=== PATIENT | female | born 1985 | race Caucasian/White ===

== ENCOUNTER → 2018-11-28 16:51 | Outpatient (CLI) | payer OTHER, SELFPAY ==
[2018-11-28 17:13] LABS: Basophils % 0.6 % (0.1-2.0); Eosinophils # 0.3 K/mm3 (0.0-0.4); Eosinophils % 3.6 % (0.1-12.0); Hematocrit 39.8 % (37.0-47.0); Hemoglobin 12.5 g/dL (12.2-16.2); Lymphocytes # 2.6 K/mm3 (0.7-4.5); Lymphocytes % 34.6 % (10-50); Mean Corpuscular HGB Conc 31.4 g/dL (31.8-35.4); Mean Corpuscular Hemoglobin 28.5 pg (27.0-31.2); Mean Corpuscular Volume 90.7 fl (81-99); Monocytes # 0.6 K/mm3 (0.1-1.0); Monocytes % 8.1 % (1.7-9.3); Neutrophils % 53.1 % (37.0-80.0); Platelet Count 294 K/mm3 (142-424); Red Blood Count 4.39 M/mm3 (4.20-5.40); White Blood Count 7.4 K/mm3 (4.8-10.8)
[2018-11-28 18:33] LABS: Alanine Aminotransferase 18 U/L (12-78); Albumin Level 3.5 gm/dL (3.4-5.0); Alkaline Phosphatase 62 U/L (46-116); Anion Gap 12.8 mEq/L (5-15); Aspartate Amino Transferase 10 U/L (15-37); Bilirubin,Total 0.3 mg/dL (0.2-1.0); Blood Urea Nitrogen 8 mg/dL (7-18); Calcium 8.1 mg/dL (8.5-10.1); Carbon Dioxide 26 mmol/L (21.0-32.0); Chloride 106 mmol/L (98-107); Cholesterol 147 mg/dL (140-200); Creatinine,Serum 0.65 mg/dL (0.55-1.02); Estimated Glomerular Filt Rate 106 ml/min (>60); GFR (African American) 128 ML/MIN (>60); Globulin 3.6 gm/dl (1.3-3.2); Glucose 90 mg/dL (74-106); HDL Cholesterol 37 mg/dL (29-89); LDL Cholesterol 90 mg/dL (0-130); Potassium 3.8 mmoL/L (3.5-5.1); Sodium 141 mmol/L (136-145); T4 (Thyroxine) 6.6 ug/dl (4.7-13.3); Thyroid Stimulating Hormone 1.29 uIU/ml (0.358-3.740); Total Protein,Serum 7.1 gm/dL (6.4-8.2); Triglycerides 101 mg/dL (30-200); VLDL Cholesterol 20 mg/dL (0-40)
[2018-11-30 18:57] LABS: Vitamin D 25 Hydroxy 27.7 ng/mL (30.0-100.0)
== END ==
PROVIDERS: Visit Provider Nurse Practitioner Family
DX: R68.89 Other general symptoms and signs (principal); E55.9 Vitamin D deficiency, unspecified
CPT/HCPCS: 80053; 80061; 82652; 84436; 84443; 85025

== ENCOUNTER → 2019-01-01 13:59 | Outpatient (CLI) | payer OTHER, SELFPAY ==
[2019-01-01 16:42] LABS: Amphetamine/Metha Screen,Urine Negative ng/mL (<1000); Barbiturates Screen,Urine Negative ng/mL (<200); Benzodiazepines Screen,Urine Negative ng/mL (<200); Cannabinoid Screen,Urine Positive ng/mL (<50); Cocaine Screen,Urine Negative ng/mL (<300); Methadone Screen,Urine Negative ng/mL (<300); Opiate Screen,Urine Negative ng/mL (<300); Phencyclidine Screen,Urine Negative ng/mL (<25)
[2019-01-08 14:11] LABS: Alprazolam Negative (Cutoff=100); Benzodiazepines Negative ng/mL (Cutoff=100); Clonazepam Negative (Cutoff=100); Flurazepam Negative (Cutoff=100); Lorazepam Negative (Cutoff=100); Midazolam Negative (Cutoff=100); Temazepam Negative (Cutoff=100); Triazolam Negative (Cutoff=100)
== END ==
PROVIDERS: Visit Provider Emergency Medicine
DX: Z79.899 Other long term (current) drug therapy (principal)
CPT/HCPCS: 80305; 80346

== ENCOUNTER → 2019-02-14 12:16 | Outpatient (CLI) | payer OTHER, SELFPAY ==
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
== END ==
PROVIDERS: PCP Emergency Medicine; Visit Provider Nurse Practitioner Family
DX: R07.81 Pleurodynia (principal)
CPT/HCPCS: 71101

== ENCOUNTER 2019-09-30 09:20 | Emergency (ER) | payer OTHER, SELFPAY ==
[2019-09-30 09:21] VITALS: BP 127/71; PULSE 98; RESP 17; TEMP 36.9; O2SAT 99; BMI 35.9
[2019-09-30 09:30] VITALS: BMI 35.9
[2019-09-30 09:36] LABS: Microscopic, Urine URINE MICROSCOPIC (MICROSCOPIC)
[2019-09-30 09:38] LABS: Appearance,Urine SL CLOUDY (Clear); Bilirubin,Urine Negative (Negative); Blood, Urine TRACE-I (Negative); Color,Urine YELLOW (Yellow); Glucose,Urine (UA) Negative (Negative); Ketones,Urine Negative (Negative); Leukocyte Esterase,Urine 1+ (Negative); Nitrate,Urine Negative (Negative); Protein,Urine Negative (Negative); Urobilinogen,Urine 0.2 EU/dl (0.2)
[2019-09-30 09:59] LABS: Amorphous Sediment,Urine 2+ /lpf; Bacteria,Urine 3+ /lpf
--- NOTE | 2019-09-30 10:20 | HMH.EDGENADL ---
ED Disposition Clinical Impression: UTI (urinary tract infection) due to Enterococcus Disposition: Home, Self-Care Condition on Discharge: Good Instructions: DI for Low Back Pain, Urinary Tract Infection Prescriptions: Ciprofloxacin HCl [Cipro 500mg Tab] 500 mg PO BID 10 Days #20 tab Transmission Status: Pending to [facility] Referrals: Chao Holliday MD [Primary Care Provider] - - Critical Care Critical Care Time: No Attestation: On 09/30/19, the high probability of a clinically significant, sudden or life threatening deterioration of the following system(s) required my full and direct attention, intervention and personal management. The time I documented below is in addition to time spent performing reported procedures but includes the following listed in this critical care notation. Medical Decision Making - Medical Records Medical records reviewed: Yes: I reviewed the patient's medical records. - Marques Inquiry Pt receiving controlled substance: No Vital Signs: 09/30/19 09:21 Temperature 98.4 F Temperature Source Oral Pulse Rate [Right] 98 H Respiratory Rate 17 Blood Pressure [Right Arm] 127/71 Blood Pressure Mean [Right Arm] 89 02 Sat by Pulse Oximetry 99 - Lab Data Lab results reviewed: Yes: I reviewed the patient's lab results. Lab Results 09/30/19 09:25: Urine Color Yellow, Urine Appearance Sl cloudy, Urine pH 6.0, Ur Specific [place] 1.020, Urine Protein Negative, Urine Glucose (UA) Negative, Urine Ketones Negative, Urine Blood Trace-i, Urine Nitrate Negative, Urine Bilirubin Negative, Urine Urobilinogen 0.2, Ur Leukocyte Esterase 1+ A, Urine RBC 5-10, Urine WBC 10-20, Ur Squamous Epith Cells 10-20, Amorphous Sediment 2+, Urine Bacteria 3+ Orders (Tests/Meds): ORDERS Category Date Time Status Urine Culture Stat Micro 09/30/19 09:25 Received General Adult HPI - General Chief complaint: Back Pain/Injury Stated complaint: lower back pain Time Seen by Provider: 09/30/19 10:20 Mode of Arrival: Ambulatory Source of Information: Patient Limitations: No Limitations Description of Symptoms (Recalled from ER Triage Doc. by RN): C/O lower back pain that radiates down her legs that began this morning, denies any problems with urination. Denies cough, fever, soa, body aches, or contact with anyone with COVID19. - History of Present Illness HPI narrative: 34-year-old female presents the ED with flank pain. She also is complaining of some dysuria. She states this pain started 2 days ago. She states that the pain is about 3-4 out of 10 classifies it as a pressure-like sensation in the suprapubic area and also with dysuria. She describes alleviating factors include heating pad and laying flat and exacerbating factors include urinating. Patient denies any fever shakes or chills. Patient denies any shortness of breath or cough. - Related Data Previous Rx's Medication Instructions Recorded gabapentin 300 mg capsule 300 mg PO BID #60 cap 08/18/19 cholecalciferol (vitamin D3) 1,250 1,250 mcg PO QWEEK #12 cap 08/26/19 mcg (50,000 unit) capsule cholecalciferol (vitamin D3) 25 25 mcg PO DAILY #90 cap 08/26/19 mcg (1,000 unit) capsule phentermine 37.5 mg capsule 37.5 mg PO DAILY #30 cap 08/26/19 Ciprofloxacin HCl [Cipro 500mg 500 mg PO BID 10 Days #20 tab 09/30/19 Tab] Allergies Allergy/AdvReac Type Severity Reaction Status Date / Time No Known Allergies Allergy Verified 08/26/19 16:01 [facility] History - Hepatitis A Screen Drug use history?: No High risk sexual behaviors?: No History of sexually transmitted infection?: No Currently employed?: No Childcare worker?: No Do you have indoor plumbing?: Yes Do you have electricity?: Yes Attestation statement:: This patient has been screened for Hepatitis A risk factors. I have reviewed the patient's past medical history: Yes Medical History: Reports:: Anxiety Other Surgeries: Yes: Cholecystecto
[2019-09-30 10:32] VITALS: BP 122/89; PULSE 92; RESP 18; TEMP 36.7; O2SAT 100
== END 2019-09-30 10:32 | disposition home or self-care (01) ==
PROVIDERS: Emergency Provider Family Medicine; PCP Emergency Medicine
DX: N30.00 Acute cystitis without hematuria (principal); F41.9 Anxiety disorder, unspecified; F17.210 Nicotine dependence, cigarettes, uncomplicated
CPT/HCPCS: 81001; 87086; 99282

== ENCOUNTER 2019-12-02 04:57 | Emergency (ER) | payer OTHER, SELFPAY ==
[2019-12-02 05:07] VITALS: BP 133/74; PULSE 96; RESP 18; TEMP 36.8; O2SAT 98; BMI 35.3
--- NOTE | 2019-12-02 05:11 | XR_ITS ---
PROCEDURE: XR CHEST 2V CLINICAL HISTORY: cough COMPARISON: CR XR RIBS RT MIN 3V W CXR1V from 02/14/2019 FINDINGS: The cardiomediastinal silhouette and pulmonary vascularity are within normal limits. The lungs are clear without infiltrates, suspicious nodules, or pleural effusions. There are 2 calcified granulomas in the left upper lobe. The remaining lungs are clear. No acute bony anomaly. IMPRESSION: No acute findings. Dictated by: Martín Merino MD 12/02/2019 05:32 Martín Merino MD in [place] 12/02/2019 05:32
--- NOTE | 2019-12-02 05:49 | PC.NURSE ---
lab obtained specimen for jyoti
[2019-12-02 05:54] VITALS: BP 126/81; PULSE 77; RESP 18; O2SAT 96
[2019-12-02 06:00] VITALS: BP 127/75; PULSE 76; RESP 18; O2SAT 96
--- NOTE | 2019-12-02 06:20 | HMH.EDFEV ---
ED Disposition Clinical Impression: Exposure to COVID-19 virus Acute bronchitis Qualifiers: Bronchitis organism: unspecified organism Qualified Code(s): J20.9 - Acute bronchitis, unspecified Disposition: Home, Self-Care Condition on Discharge: Good Instructions: DI for Fever (Symptom) -- Adult Additional Instructions: fluids and self quarantine till results Prescriptions: levoFLOXacin [Levaquin 500mg tab] 500 mg PO DAILY #7 tab Transmission Status: Pending to [facility] Referrals: Chao Holliday MD [Primary Care Provider] - - Critical Care Critical Care Time: No Attestation: On 12/02/19, the high probability of a clinically significant, sudden or life threatening deterioration of the following system(s) required my full and direct attention, intervention and personal management. The time I documented below is in addition to time spent performing reported procedures but includes the following listed in this critical care notation. Medical Decision Making - Medical Records Medical records reviewed: Yes: I reviewed the patient's medical records. - Marques Inquiry Pt receiving controlled substance: No Vital Signs: 12/02/19 05:07 12/02/19 05:54 12/02/19 06:00 Temperature 98.2 F Temperature Source Oral Pulse Rate [Right Brachial] 96 H 77 76 Respiratory Rate 18 18 18 Blood Pressure [Right Arm] 133/74 126/81 127/75 Blood Pressure Mean [Right Arm] 93 96 92 Blood Pressure Source [Right Arm] Automatic Cuff Blood Pressure Position [Right Arm] Sitting 02 Sat by Pulse Oximetry 98 96 96 Oxygen Delivery Method Room Air Room Air Nasal Cannula Oxygen Flow Rate (LPM) 2 - Lab Data Lab results reviewed: Yes: I reviewed the patient's lab results. Orders (Tests/Meds): ORDERS Category Date Time Status Covid-19 Nasal PCR ([facility]) Routine Lab 12/02/19 05:44 Received - Radiology Data #1 Image(s): Chest Image Reviewed: Yes I reviewed the patient's radiology image Preliminary Findings: Normal/NAD Fever HPI - General Chief Complaint: Fever Stated Complaint: headache, body aches, cough Time Seen by Provider: 12/02/19 06:00 Mode of Arrival: Family Vehicle Source of Information: Patient, Medical Record Limitations: No Limitations Description of Symptoms (Recalled from ER Triage Doc. by RN): pt describes cough/congestion/sinus drainage that began 2 days ago; and body aches yesterday along with fever; recent contact with covid pos patient - History of Present Illness HPI Narrative: prod cough with green sputum over the last few days with exposure to [id number] achey and has tob use - no change in smell complaint: fever, malaise Onset (ago): day(s) Context: sick contacts Associated symptoms: denies other symptoms Treatments prior to arrival fever: acetaminophen - Related Data Previous Rx's Medication Instructions Recorded cholecalciferol (vitamin D3) 1,250 1,250 mcg PO QWEEK #12 cap 08/26/19 mcg (50,000 unit) capsule cholecalciferol (vitamin D3) 25 25 mcg PO DAILY #90 cap 08/26/19 mcg (1,000 unit) capsule gabapentin 300 mg capsule 300 mg PO BID #60 cap 11/14/19 phentermine 37.5 mg capsule 37.5 mg PO DAILY #30 cap 11/14/19 levoFLOXacin [Levaquin 500mg 500 mg PO DAILY #7 tab 12/02/19 tab] Allergies Allergy/AdvReac Type Severity Reaction Status Date / Time No Known Allergies Allergy Verified 11/14/19 10:55 [facility] History - Hepatitis A Screen Drug use history?: No High risk sexual behaviors?: No History of sexually transmitted infection?: No Currently employed?: No Childcare worker?: No Do you have indoor plumbing?: Yes Do you have electricity?: Yes Attestation statement:: This patient has been screened for Hepatitis A risk factors. I have reviewed the patient's past medical history: Yes Medical History: Reports:: Anxiety Other Surgeries: Yes: Cholecystectomy, Tubal Ligation Amputation: No Fractures: No - Social History Smoking St
[2019-12-02 06:28] VITALS: BP 128/73; PULSE 83; RESP 18; TEMP 36.8; O2SAT 95
== END 2019-12-02 06:49 | disposition home or self-care (01) ==
PROVIDERS: Emergency Provider Emergency Medicine; PCP Emergency Medicine
DX: Z20.828 Contact with and (suspected) exposure to other viral communicable diseases (principal); J20.9 Acute bronchitis, unspecified
CPT/HCPCS: 71046; 99283; U0003

== ENCOUNTER → 2020-03-08 14:06 | Outpatient (CLI) | payer OTHER, SELFPAY ==
[2020-03-10 11:00] LABS: Covid-19 Nasal PCR Sendout P&C POSITIVE
== END ==
PROVIDERS: PCP Emergency Medicine; Visit Provider Emergency Medicine
DX: U07.1 COVID-19 (principal)
CPT/HCPCS: U0004

== ENCOUNTER 2020-12-23 10:39 | Emergency (ER) | payer OTHER, SELFPAY ==
[2020-12-23 10:40] VITALS: BP 127/80; PULSE 91; RESP 20; TEMP 36.6; O2SAT 99; BMI 36.0
--- NOTE | 2020-12-23 11:01 | HMH.EDUTC ---
[facility] [place] Clinical Impression: Gastroenteritis Disposition: Home, Self-Care Condition on Discharge: Good Instructions: Nausea and Vomiting-Adult, Diarrhea, DI for Viral Gastroenteritis -- Adult, Gastroenteritis Diet Additional Instructions: Drink extra fluids with and between meals. If you have difficulty drinking, try very small amounts of water or suck on ice chips. ? Avoid fruit juices, as these do not replace minerals and can actually increase diarrhea. ? Children and adults can use sports drinks to replenish electrolytes. Younger children and infants should use products formulated for children, like oral rehydration solutions. ? Eat food in small amounts and let your stomach recover. ? Get lots of rest. You may feel tired or weak. ? No greasy or fried foods for the next 24-48 hours BRAT diet Bananas Rice Apples and [place] ? Make sure to drink plenty of liquids ? Return if needed ? Straight to ER if any life threatening symptoms ? Zofran as prescribed ? You was given an outpatient order for diarrhea panel, please collect specimen and bring back to outpatient lab then call back to the [facility] or follow up with family doctor for results ? Follow up with family doctor in the next 48-72 hours if no improvement or any worsening of symptoms Prescriptions: Dicyclomine HCl [Bentyl 10mg capsule] 10 mg PO TID PRN #15 cap PRN Reason: Cramping Transmission Status: Pending to [facility] Ondansetron [Zofran 4mg ODT] 4 mg PO TIDP PRN #10 tab PRN Reason: Nausea Transmission Status: Pending to [facility] Referrals: Chao Holliday MD [Primary Care Provider] - As needed Forms: Work/School Release Time of Disposition: 11:36 Medical Decision Making - Marques Inquiry Pt receiving controlled substance: No Marques was queried for this patient: No Vital Signs: 12/23/20 10:40 Temperature 97.8 F Temperature Source Oral Pulse Rate [Left Brachial] 91 H Respiratory Rate 20 Blood Pressure [Left Arm] 127/80 Blood Pressure Mean [Left Arm] 95 Blood Pressure Source [Left Arm] Automatic Cuff Blood Pressure Position [Left Arm] Sitting 02 Sat by Pulse Oximetry 99 Oxygen Delivery Method Room Air Orders (Tests/Meds): ED MEDICATIONS Discontinued Medications Generic Name Dose Route Start Last Admin Trade Name Freq PRN Reason Stop Dose Admin Dicyclomine HCl 10 mg 12/23/20 11:09 12/23/20 11:16 Dicyclomine 10mg Capsule PO 12/23/20 11:10 10 mg ONCE ONE Administration Ondansetron HCl 4 mg 12/23/20 11:08 12/23/20 11:16 Ondansetron 4mg Odt SL 12/23/20 11:09 4 mg ONCE ONE Administration Medical Decision Narrative: Patient states that after medication cramping is much better and no longer having nausea [facility] [place] - General Stated complaint: vomiting, diarrhea, fever, body aches Time Seen by Provider: 12/23/20 10:45 Mode of Arrival: Ambulatory Source of Information: Patient Limitations: No Limitations Description of Symptoms (Recalled from Triage Doc. by RN): PATIENT C/O ABDOMINAL PAIN, VOMITING AND FEVER THAT STARTED LAST NIGHT. REPORTS THAT ABDOMINAL PAIN IS BETTER AFTER VOMITING HEENT Symptoms (Recalled from RN notes): No Resp Symptoms (Recalled from RN notes): No Skin Symptoms (Recalled from RN notes): No MS Symptoms (Recalled from RN notes): No Functional Status (Recalled from RN notes): WNL - History of Present Illness Provider Complaint: Patient states that she thinks she may have got food poisoning yesterday States that she eat out and shortly after she started having crampy like feeling in her abdomen and started having vomiting and diarrhea State that she has continued to have diarrhea all night with occasional vomiting States that she woke up in the middle of the night with chills and took some phenergan and it helped a little States that this morning she was still cramping with N/V/D so she came in - Related Data Previous Rx's Medication Instructions Recorded Dic
[2020-12-23 11:40] VITALS: BP 127/80; PULSE 91; RESP 20; TEMP 36.6; O2SAT 99
== END 2020-12-23 11:43 | disposition home or self-care (01) ==
PROVIDERS: Emergency Provider Nurse Practitioner; PCP Emergency Medicine
DX: K52.9 Noninfective gastroenteritis and colitis, unspecified (principal); F17.210 Nicotine dependence, cigarettes, uncomplicated
CPT/HCPCS: 99202; G0463

== ENCOUNTER 2021-05-03 12:34 | Emergency (ER) | payer OTHER, SELFPAY ==
[2021-05-03 12:47] VITALS: RESP 16; TEMP 36.6; BMI 36.0
--- NOTE | 2021-05-03 14:02 | HMH.EDUTC ---
[facility] [place] Clinical Impression: Influenza A Disposition: Home, Self-Care Condition on Discharge: Good Instructions: Influenza, DI for Influenza -- Adult Additional Instructions: Drink plenty of fluids. Take tylenol or ibuprofen for pain or fever. Take the medications as directed. Follow up with your regular doctor. GO TO THE ER FOR ANY WORSENING SYMPTOMS Prescriptions: Ondansetron [Zofran 4mg ODT] 4 mg PO Q8HP PRN #20 tab PRN Reason: Nausea Transmission Status: Received by [facility] Benzonatate [Benzonatate 100mg cap] 100 mg PO TIDP PRN #30 cap PRN Reason: Cough Transmission Status: Received by [facility] methylPREDNISolone [Medrol] 4 mg PO DIRECTED 6 Days #21 packet Transmission Status: Received by [facility] Oseltamivir Phosphate [Tamiflu 75mg Capsule] 75 mg PO BID #10 cap Transmission Status: Received by [facility] Referrals: Chao Holliday MD [Primary Care Provider] - Forms: Work/School Release Time of Disposition: 14:39 Medical Decision Making - Medical Records Medical records reviewed: No: I reviewed the patient's medical records. - Marques Inquiry Pt receiving controlled substance: No Vital Signs: 05/03/21 12:47 05/03/21 14:08 05/03/21 14:50 Temperature 97.9 F 98.6 F 98.6 F Temperature Source Oral Oral Pulse Rate 102 H Pulse Rate [Left] 102 H Respiratory Rate 16 16 16 Blood Pressure 133/74 Blood Pressure [Right Arm] 133/74 Blood Pressure Mean [Right Arm] 93 02 Sat by Pulse Oximetry 98 - Lab Data Lab results reviewed: Yes: I reviewed the patient's lab results. Lab Results 05/03/21 14:01: Influenza Type A Ag Positive A, Influenza Type B Ag Negative [facility] [place]PI - General Stated complaint: cough, sore throat, headache, body aches Time Seen by Provider: 05/03/21 14:02 Mode of Arrival: Ambulatory Source of Information: Patient Limitations: No Limitations Description of Symptoms (Recalled from Triage Doc. by RN): c/o body aches, headache and nausea that began yesterday. Pt reports her daughter has the flu. States she took a rapid covid swab at home that was negative. - History of Present Illness Provider Complaint: She states that she has had cough, congestion, fever, chills and body aches since yesterday. - Related Data Previous Rx's Medication Instructions Recorded Dicyclomine HCl [Bentyl 10mg 10 mg PO TID PRN #15 cap 12/23/20 capsule] Ondansetron [Zofran 4mg ODT] 4 mg PO TIDP PRN #10 tab 12/23/20 Benzonatate [Benzonatate 100mg 100 mg PO TIDP PRN #30 cap 05/03/21 cap] Ondansetron [Zofran 4mg ODT] 4 mg PO Q8HP PRN #20 tab 05/03/21 Oseltamivir Phosphate [Tamiflu 75 mg PO BID #10 cap 05/03/21 75mg Capsule] methylPREDNISolone [Medrol] 4 mg PO DIRECTED 6 Days #21 05/03/21 packet Allergies Allergy/AdvReac Type Severity Reaction Status Date / Time No Known Allergies Allergy Verified 09/29/20 15:53 [facility] History - Hepatitis A Screen Attestation statement:: This patient has been screened for Hepatitis A risk factors. I have reviewed the patient's past medical history: Yes Medical History: Reports:: Anxiety Other Surgeries: Yes: No Previous Surgery, Cholecystectomy, Tubal Ligation Amputation: No Fractures: No - Social History Smoking Status: Current every day smoker Tobacco Type: cigarettes # Packs/Day (cigarettes): 1 Alcohol Intake: never Alcohol Intake Frequency:: holidays/special occasions only Substance Use Type: denies use Occupational Status: other - Psychiatric History Pschychiatric History:: Reports:: Anxiety Family Hx:: No significant family history ROS Obtained: Yes All systems reviewed & no additional complaints - Constitutional Constitutional: Reports as per HPI - Eyes Eyes: Denies eye discharge - ENT Ears, Nose, Mouth, and Throat: Reports as per HPI - Cardiovascular Cardiovascular: Denies chest pain - Re
[2021-05-03 14:08] VITALS: BP 133/74; PULSE 102; RESP 16; TEMP 37; O2SAT 98; BMI 36.0
[2021-05-03 14:13] LABS: UTC Influenza A Antigen Positive (Negative); UTC Influenza B Antigen Negative (Negative)
[2021-05-03 14:50] VITALS: BP 133/74; PULSE 102; RESP 16; TEMP 37
== END 2021-05-03 14:51 | disposition home or self-care (01) ==
LOC: ER 12:46 → UTC 12:47
PROVIDERS: Emergency Provider Nurse Practitioner Family; PCP Emergency Medicine
DX: J10.1 Influenza due to other identified influenza virus with other respiratory manifestations (principal); F41.9 Anxiety disorder, unspecified; F17.210 Nicotine dependence, cigarettes, uncomplicated; Z79.52 Long term (current) use of systemic steroids; Z79.899 Other long term (current) drug therapy
CPT/HCPCS: 87804; 99213; G0463

== ENCOUNTER → 2021-06-14 16:00 | Outpatient (CLI) | payer OTHER, SELFPAY ==
[2021-06-16 08:21] LABS: HIV Screen 4th Generation wRfx Non Reactive (Non Reactive)
[2021-06-16 09:17] LABS: HSV 2 IgG, Type Spec <0.91 index (0.00-0.90)
[2021-06-16 10:14] LABS: Hep A Ab, IgM Negative (Negative); Hepatitis B Core Antibody IgM Negative (Negative); Hepatitis B Surface Antigen Negative (Negative); Hepatitis C Antibody <0.1 s/co ratio (0.0-0.9)
[2021-06-16 13:30] LABS: Rapid Plasma Reagin Ab Titer Non Reactive (NonRea<1:1)
[2021-06-17 18:09] LABS: Neisseria gonorrhoeae, NAA Negative (Negative)
== END ==
PROVIDERS: Visit Provider Emergency Medicine
DX: Z20.2 Contact with and (suspected) exposure to infections with a predominantly sexual mode of transmission (principal); Z72.51 High risk heterosexual behavior
CPT/HCPCS: 80074; 86592; 86695; 86703; 86790; 87491; 87591; G0432

== ENCOUNTER → 2021-07-25 13:54 | Outpatient (CLI) | payer OTHER, SELFPAY ==
[2021-07-25 13:57] LABS: Benzodiazepines Screen,Urine Negative ng/ml (<200)
[2021-07-25 13:58] LABS: Amphetamine/Metha Screen,Urine Negative ng/ml (<1000)
[2021-07-25 13:59] LABS: Barbiturates Screen,Urine Negative ng/ml (<200); Methadone Screen,Urine Negative ng/ml (<300)
[2021-07-25 14:00] LABS: Cannabinoid Screen,Urine Positive ng/ml (<50)
[2021-07-25 14:01] LABS: Cocaine Screen,Urine Negative ng/ml (<300)
[2021-07-25 14:02] LABS: Opiate Screen,Urine Negative ng/ml (<300)
[2021-07-25 14:03] LABS: Phencyclidine Screen,Urine Negative ng/ml (<25)
== END ==
PROVIDERS: PCP Emergency Medicine; Visit Provider Emergency Medicine
DX: Z79.899 Other long term (current) drug therapy (principal)
CPT/HCPCS: 80305

== ENCOUNTER → 2021-09-13 17:13 | Outpatient (CLI) | payer OTHER, SELFPAY ==
[2021-09-13 15:12] LABS: Amphetamine/Metha Screen,Urine Negative ng/ml (<1000); Barbiturates Screen,Urine Negative ng/ml (<200)
[2021-09-13 15:13] LABS: Benzodiazepines Screen,Urine Negative ng/ml (<200)
[2021-09-13 15:14] LABS: Cannabinoid Screen,Urine Positive ng/ml (<50); Cocaine Screen,Urine Negative ng/ml (<300)
[2021-09-13 15:15] LABS: Methadone Screen,Urine Negative ng/ml (<300); Opiate Screen,Urine Negative ng/ml (<300)
[2021-09-13 15:17] LABS: Phencyclidine Screen,Urine Negative ng/ml (<25)
== END ==
PROVIDERS: PCP Emergency Medicine; Visit Provider Emergency Medicine
DX: Z79.899 Other long term (current) drug therapy (principal)
CPT/HCPCS: 80305

== ENCOUNTER → 2022-06-29 23:26 | Outpatient (CLI) | payer OTHER, SELFPAY | PROVIDERS: PCP Nurse Practitioner Family; Visit Provider Nurse Practitioner Family | DX: N39.0 Urinary tract infection, site not specified (principal); B96.29 Other Escherichia coli [E. coli] as the cause of diseases classified elsewhere | CPT/HCPCS: 87086; 87088; 87186 ==

== ENCOUNTER 2022-08-23 10:08 | Emergency (ER) | payer OTHER, SELFPAY ==
[2022-08-23 10:20] VITALS: BP 148/91; PULSE 84; RESP 20; TEMP 36.8; O2SAT 99; BMI 37.0
--- NOTE | 2022-08-23 10:26 | XR_ITS ---
FINAL REPORT CLINICAL HISTORY: Lt shoulder pain COMPARISON: None FINDINGS: LEFT SHOULDER Two views demonstrate no acute fracture or dislocation. The joint spaces appear normal. The visualized bony structures are well aligned. No soft tissue abnormality is seen. IMPRESSION: No acute process. Reviewed, Interpreted and Dictated by Salvador Ferguson III, MD Transcribed by Patricia Lilly Authenticated and [facility]
--- NOTE | 2022-08-23 10:52 | PC.NURSE ---
rounded on patient, family at bedside, waiting on xray results, no needs at this time
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
[2022-08-23 11:31] VITALS: BP 118/86; PULSE 80; RESP 16; TEMP 36.7
== END 2022-08-23 11:32 | disposition home or self-care (01) ==
PROVIDERS: Emergency Provider Emergency Medicine; PCP Emergency Medicine
DX: M54.2 Cervicalgia (principal); M25.512 Pain in left shoulder; X50.1XXA Overexertion from prolonged static or awkward postures, initial encounter; F17.210 Nicotine dependence, cigarettes, uncomplicated; F90.9 Attention-deficit hyperactivity disorder, unspecified type
CPT/HCPCS: 73030; 96372; 99283; 99284

== ENCOUNTER 2022-08-24 13:25 | Emergency (ER) | payer OTHER, SELFPAY ==
[2022-08-24 13:27] VITALS: BP 98/72; PULSE 74; RESP 16; TEMP 36.4; O2SAT 99; BMI 37.0
--- NOTE | 2022-08-24 13:45 | [facility].EDGENADL ---
Discharge Plan Disposition Patient Disposition: Home, Self-Care Prescriptions Prescriptions: New cyclobenzaprine 5 mg tablet 5 mg PO TID PRN (Reason: muscle spasm) 5 Days Qty: 15 0RF No Action sulfamethoxazole-trimethoprim [Bactrim DS] 800-160 mg tablet 1 tab PO BID 10 Days Qty: 20 0RF ondansetron HCl 4 mg tablet 4 mg PO Q6H PRN (Reason: nausea) Qty: 10 0RF gabapentin 600 mg tablet 600 mg PO TID Qty: 90 2RF phentermine [Adipex-P] 37.5 mg tablet 37.5 mg PO DAILY Qty: 30 0RF Rx Instructions: must administer 30 minutes before or 1-2 hours after breakfast naproxen 375 mg tablet 375 mg PO BID Qty: 30 0RF Referrals Follow up/Referrals: Chao Holliday MD [Primary Care Provider] - See instructions Activity Restrictions/Add. Instructions Additional Instructions/Restrictions: Please follow-up with Dr. Holliday within 1 week to be evaluated for the need for physical therapy and/or a possible MRI if you are not improving. Please stop taking your ibuprofen in addition to your naproxen and you may take your naproxen plus the muscle relaxer we prescribed today as needed for your symptoms. Ice as discussed return with any muscular weakness. Clinical Impressions Clinical Impression: Left shoulder strain, Trapezius muscle strain Discharge ED Provider: Abimbola Schulz General Adult HPI General Chief complaint: Extremity Injury, Upper Stated complaint: LT shoulder pain AO@home 08/17 Time Seen by Provider: 08/24/22 13:34 Mode of Arrival: Ambulatory Source of Information: Patient Limitations: No Limitations Description of Symptoms (Recalled from ER Triage Doc. by RN): Presents to ED with complaints of left shoudler/arm/back pain that started yesterday. Patient reports she was seen in the ED but pain has gotten worse. Patient decribes the pain as a pinching sensation. [place] Gabapentin 1600 mg, Tylenol 650mg, and 800 mg Ibuprofen with no relief. History of Present Illness HPI narrative: Patient is a 37-year-old female presenting with persistent left shoulder pain following an injury with a horse that happened 1 week ago. She states she was riding a horse and lifted up to try to grab a limb so that she could dismount off of the horse and it stretched her shoulder. She states she did not have any immediate pain but woke up the next day with some significant delayed pain in the left shoulder and left trapezius region. She states the pain is localized to that region does not radiate down her arm. There is been no muscular weakness no loss of sensation. She was here yesterday with an x-ray there which was unremarkable and she has been taking ibuprofen and naproxen at home without any significant relief. Related Data Previous Rx's Medication Instructions Recorded ondansetron HCl 4 mg tablet 4 mg PO Q6H PRN nausea #10 tabs 06/29/22 sulfamethoxazole 800 1 tab PO BID 10 days #20 tabs 06/29/22 mg-trimethoprim 160 mg tablet (Bactrim DS) gabapentin 600 mg tablet 600 mg PO TID #90 tabs 07/18/22 phentermine 37.5 mg tablet 37.5 mg PO DAILY #30 tabs 07/18/22 (Adipex-P) naproxen 375 mg tablet 375 mg PO BID #30 tabs 08/23/22 cyclobenzaprine 5 mg tablet 5 mg PO TID PRN muscle spasm 5 08/24/22 days #15 tabs Allergies Allergy/AdvReac Type Severity Reaction Status Date / Time cariprazine [From Vraylar] AdvReac Severe suicidal Verified 07/18/22 13:07 [facility] Disclaimer: The information contained in this section may have been updated after the patient was seen, as this information can be updated by other users. Medical History Attention Deficit Hyperactivity Disorder (ADHD) Knee pain Surgical History H/O tubal ligation History of cholecystectomy Social History Smoking Status: Current every day smoker tobacco type: cigar
[2022-08-24 13:54] VITALS: BP 140/95; PULSE 74; RESP 16; TEMP 36.4; O2SAT 99
== END 2022-08-24 13:54 | disposition home or self-care (01) ==
PROVIDERS: Emergency Provider Student in an Organized Health Care Education/Training Program; PCP Emergency Medicine
DX: S46.812A Strain of other muscles, fascia and tendons at shoulder and upper arm level, left arm, initial encounter (principal); F90.9 Attention-deficit hyperactivity disorder, unspecified type; X50.0XXA Overexertion from strenuous movement or load, initial encounter; F17.210 Nicotine dependence, cigarettes, uncomplicated
CPT/HCPCS: 99283; 99284